=== PATIENT | male | born 1975 | race Caucasian/White ===

== ENCOUNTER → 2016-11-02 | Outpatient (CLI) | payer BC ==
--- NOTE | 2016-11-02 17:17 | Diagnostic Imaging Report ---
INDICATION: Low back pain. AP and lateral views of the lumbar spine are obtained. FINDINGS: Lumbar vertebrae are normal in alignment. There is no significant disc space narrowing. There are probable Schmorl's nodes at L1 inferiorly and superiorly, with slight loss of height of L1 which is probably chronic. There are facet degenerative change at L4-L5 and L5-S1. IMPRESSION: There is slight loss of height of L1 which may be chronic. Correlate for point tenderness in this area. There appeared to be Schmorl's nodes at L1 superiorly and inferiorly. Remaining lumbar vertebrae appear normal. Dictated by: Dictated on workstation # [id number]
--- NOTE | 2016-11-02 18:19 | Diagnostic Imaging Report ---
INDICATION: Pain for several months on the right side of the spine. No known trauma. FINDINGS: Frontal, lateral and swimmer's views of the thoracic spine demonstrate normal ossification. No fracture or subluxation is present. IMPRESSION: Normal thoracic spine. Dictated by: Dictated on workstation # [id number]
== END ==
LOC: RAD 15:10
PROVIDERS: ATTEND Chiropractor
DX: M54.5 Low back pain (principal); M54.6 Pain in thoracic spine
CPT/HCPCS: 72072; 72100

== ENCOUNTER → 2016-12-07 | Outpatient (REF) | payer BC ==
[2016-12-07 08:49] LABS: BASOPHILS % (AUTO) 1 % (0-2); EOSINOPHILS # (AUTO) 0.2 10^3uL; EOSINOPHILS % (AUTO) 4 % (0-4); LYMPHOCYTES # (AUTO) 2.2 X10^3; MEAN CORPUSCULAR HEMOGLOBIN 30.3 PG (26.0-34.0); MEAN CORPUSCULAR HGB CONC 34.2 g/dL (31.0-37.0); MEAN CORPUSCULAR VOLUME 89 FL (80-100); MEAN PLATELET VOLUME 9.4 FL (6.0-9.5); MONOCYTES # (AUTO) 0.4 X10^3; MONOCYTES % (AUTO) 7 % (3-11); NEUTROPHILS # (AUTO) 2.7 X10^3; NEUTROPHILS % (AUTO) 48 % (51-67); PLATELET COUNT 241 10^3uL (150-450); WHITE BLOOD COUNT 5.62 10^3uL (4.0-11.0)
[2016-12-07 09:01] LABS: ALBUMIN 4.1 g/dL (3.4-5.0); ANION GAP 12.9 MEQ/L (3-15); CALCULATED IONIZED CALCIUM 4.3 mg/dL (3.8-4.6); TOTAL PROTEIN 6.7 g/dL (6.4-8.5)
== END ==
LOC: LAB 08:32
PROVIDERS: ATTEND Nurse Practitioner Family
DX: Z00.00 Encounter for general adult medical examination without abnormal findings (principal); E03.8 Other specified hypothyroidism
CPT/HCPCS: 80053; 80061; 84443; 85025